=== PATIENT | female | born 1975 | race Caucasian/White ===

== ENCOUNTER 2020-11-13 09:10 | Day surgery (SDC) | payer OTHER ==
[2020-11-12 13:32] LABS: BASOPHILS % (AUTO) 0.7 % (0.0-2.0); EOSINOPHILS % (AUTO) 6.8 % (1.0-6.0); HEMATOCRIT 35.7 % (36-46); HEMOGLOBIN 11.3 g/dL (12.0-16.0); LYMPHOCYTES # (AUTO) 1.3 K/uL (1.0-4.8); LYMPHOCYTES % (AUTO) 21.2 % (22.0-44.0); MEAN CORPUSCULAR HEMOGLOBIN 28.1 pg (26.0-34.0); MEAN CORPUSCULAR HGB CONC 31.5 G/dL (31.0-37.0); MEAN CORPUSCULAR VOLUME 89 fL (80-100); MONOCYTES # (AUTO) 0.5 K/uL (0.1-1.0); MONOCYTES % (AUTO) 8.9 % (2.0-9.0); NEUTROPHILS # (AUTO) 3.8 K/uL (1.8-7.7); NEUTROPHILS % (AUTO) 62.4 % (40.0-70.0); PLATELET COUNT (AUTO) 208 K/uL (150-450); RED BLOOD CELL COUNT(AUTO) 4.01 MIL/uL (4.00-5.20); RED CELL DISTRIBUTION WIDTH 18.8 % (11.5-14.5)
[2020-11-12 13:42] LABS: ANION GAP 10 mmol/L (8-16); CALCIUM, TOTAL 8.6 mg/dL (8.8-10.5); CARBON DIOXIDE 26 mmol/L (22-29); CHLORIDE 103 mmol/L (98-107); GLOMERULAR FILTR. RATE CALC > 60 mL/min (>60); GLUCOSE,RANDOM 88 mg/dL (70-110); POTASSIUM 4.1 mmol/L (3.5-5.1); SODIUM SERUM 139 mmol/L (136-145); UREA NITROGEN, BLOOD 13 mg/dL (7-18)
[2020-11-12 13:54] LABS: HCG,QUANTITATIVE < 1 mIU/mL (0-6)
[2020-11-12 14:03] LABS: COVID AG,FIA SOURCE NASOPHARYNGEAL
[~2020-11-13] VITALS: Ht 170.2 cm; Wt 65.9 kg
[~2020-11-13 09:10] MED LIST: CeFAZolin 2 GM/DEXTROSE 50 ML IV ONE; LEVO75TA4 PO; RINGERS SOLUTION,LACTATED 1,000 ML IV ONE
[2020-11-13] MEDS ORDERED: HYDROmorphone 2 MG/ML VIAL IVP PRN (09:30)
[2020-11-13] MEDS ORDERED: MEPERIDINE-PF 25 MG/ML VIAL IVP PRN (09:30)
[2020-11-13] MEDS ORDERED: FentaNYL CITRATE PF 100 MCG/2 ML VIAL IVP PRN (09:30)
[2020-11-13] MEDS ORDERED: SODIUM CL IRRIG SOLN BAG 3,000 ML IRRIG ONE (09:50)
[2020-11-13] MEDS ORDERED: SILVER NITRATE APPLICATOR 1 EA STICK TP ONE (09:50)
[2020-11-13] MEDS ORDERED: VASOPRESSIN 20 UNITS/ML VIAL ONE (11:49)
[2020-11-13] MEDS ORDERED: SODIUM CHLORIDE 0.9% 0 ML ONE ×2 (11:50→11:51)
[2020-11-13] MEDS ORDERED: DEXAMETHASONE SOD PHOS 4 MG/ML VIAL IVP ONE (12:00)
[2020-11-13] MEDS ORDERED: ONDANSETRON HCL 4 MG/2 ML VIAL IVP ONE (12:00)
[2020-11-13] MEDS ORDERED: PROPOFOL 1% 20 ML VIAL IVP ONE (12:00)
== END 2020-11-13 14:00 | disposition home or self-care (01) ==
LOC: SURGERY 09:10
PROVIDERS: ATTEND Obstetrics & Gynecology
DX: N92.1 Excessive and frequent menstruation with irregular cycle (principal); D64.9 Anemia, unspecified; D28.1 Benign neoplasm of vagina; E03.9 Hypothyroidism, unspecified; Z79.899 Other long term (current) drug therapy; Z98.890 Other specified postprocedural states
CPT/HCPCS: 36415; 58145; 80048; 84702; 85025; 87426; 88305; C9803; J0690; J1100; J2405; J2704; J3490; J7120; J7050